=== PATIENT | female | born 1935 | race Caucasian/White ===

== ENCOUNTER → 2018-01-21 | Outpatient (CLI) | payer MEDICARE, BC ==
[~2018-01-21] MED LIST: ADVAIR 250-501 EACH INH; ADVAIR 500-501 EACH INH; ADVAIRDISKUS; ALBUTEROL SULFAT2 MG PO; ALBUTEROL SULFATE PO; ALBUTEROL2.5 MG/3 M PO; ALPRAZOLAM 0.50.5 MG PO; AMBIEN 5 MG TABL5 M1 PO; ANTACID650 MG PO; ASPIR 8181 MG PO; ATORVASTATIN CA40 MG PO; AZITHROMYCIN 2250 MG PO; BROVANA15 MCG/2 M INH; CALCIUM 500 +1 EAC5 PO; CALCIUM 600 +1 EAC7 PO; CARDIZEM CD240 MG; CEFPODOXIME PR200 M1 PO; CEFTIN 250 MG250 MG PO; CENTRUM SILVER1 EAC4 PO; CLARITIN-D 12 H1 TA2 PO; CLARITIN10 MG PO; CO-ENZYME Q-1010 MG PO; COLACE100 MG PO; COUMADIN; COZAAR 25 MG TA25 M2 PO; COZAAR 50 MG TA50 M2 PO; DIPHENHYDRAMINE25 M1 PO; DOXYCYCLINE 10100 M1; DOXYCYCLINE 10100 M1 PO; DOXYCYCLINE 10100 MG PO; DUONEB 2.5-0.5 M3 ML; ENABLEX 7.5 MG7.5 M1 PO; EVISTA PO; FELDENE20 MG PO; FLONASE 0.05%50 MCG NASAL; Feldene PO; GABAPENTIN 100100 MG; GABAPENTIN100 MG; GABAPENTIN100 MG PO; HYDROCHLOROTH12.5 MG; HYDROXYZINE HCL25 M1 PO; HYDROXYZINE HCL25 M2 PO; IBUPROFEN 200200 M1 PO; KEFLEX; KEFLEX250 MG PO; KEFLEX500 MG PO; KLOR-CON 1010 MEQ PO; LASIX 20 MG TAB20 MG PO; LASIX 40 MG TAB40 M2 PO; LASIX 80 MG TAB80 MG PO; LEVOTHYROXINE0.05 MG PO; LOPRESSOR25 PO; MAGNESIUM OXID400 MG PO; METAMUCIL PAC1 UDPKT PO; MIRALAX17 GM PO; MUCINEX TA600 MG/TA2 PO; MUCINEX600 MG; MUCINEX600 MG PO; NEURONTIN 300300 M1 PO; NEURONTIN 300M300 M2 PO; NIACIN 500 MG500 M1 PO; NORVASC10 MG PO; ONDANSETRON HCL4 M2 PO; OXYCODONE HCL15 MG PO; OXYCONTIN CR 1010 M1; PERCOCET 10-321 EACH PO; PERCOCET 5-3251 EACH; PERCOCET 5-3251 EACH PO; PILOCARPINE HCL5 M1 PO; PLAVIX 75 MG TA75 M1 PO; POTASSIUM20 PO; PREDNISONE 10 M10 M1 PO; PREDNISONE 10 M10 MG PO; PREDNISONE 2.52.5 MG PO; PREDNISONE 20 M20 MG PO; PREDNISONE 5 MG5 M1 PO; PREDNISONE10 MG PO; PROAIR HFA8.5 GM; PROAIR HFA8.5 GM INH; PROTONIX40 M1 PO; PROTONIX40 M2 PO; PROVENTIL; PULMICORT0.5 MG/22 INH; REQUIP 1 MG TABL1 M1 PO; ROBITUSSIN DM118 ML PO; SF 5000 PLUS51 GM PO; SIMVASTATIN40 MG; SINGULAIR; SINGULAIR 10 MG10 M1 PO; SPIRIVA18 MCG INH; SYMBICORT80 MCG/4.1 INH; SYNTHROID; TAMSULOSIN HCL0.4 MG; TESSALON PERLE100 MG PO; TIZANIDINE HCL 22 M1 PO; TOPROL XL100 MG PO; TOPROL XL25 MG PO; TRIAMCINOLONE A80 G2 TOP; ULTRAM 50MG TAB50 MG; UNICOMPLEX M TA1 TA1 PO; VENTOLIN HFA 1818 GM INH; VENTOLIN HFA INH8 GM IH; XANAX 0.25 MG0.25 MG PO; XANAX 0.5 MG0.5 MG PO; ZANAFLEX4 MG PO; ZETIA10 MG PO; ZOFRAN ODT4 MG PO; ZOFRAN ODT8 MG PO; ZYRTEC10 M2 PO; ZYRTEC10 M5 PO
[2018-01-21 11:23] LABS: ABSOLUTE EOSINOPHILS 0.1 thou/uL (0.0-0.7); ABSOLUTE LYMPHOCYTES 1.5 thou/uL (0.8-5.3); ABSOLUTE MONOCYTES 0.9 thou/uL (0.0-1.2); ABSOLUTE NEUTROPHILS 6.3 thou/uL (1.6-8.1); BASOPHILS 0.5 %; EOSINOPHILS 0.9 %; HEMATOCRIT 41.1 % (37.0-47.0); MCH 33.5 pg (26.0-34.0); MCHC 34.1 g/dL (28.0-37.0); MONOCYTES 10.4 %; MPV 6.9 fl. (7.2-11.1); NUCLEATED RBCS 0 /100WBC; PLATELET COUNT* 221 thou/uL (150-400); POLYS 71.2 %; RBC 4.19 mil/uL (4.20-5.00); RDW-CV 14.4 % (10.5-14.5); WBC 8.8 thou/uL (4.0-11.0)
[2018-01-21 11:24] LABS: URINE BILIRUBIN NEGATIVE (Negative); URINE BLOOD NEGATIVE (Negative); URINE CLARITY CLEAR; URINE COLOR YELLOW; URINE GLUCOSE-RANDOM NEGATIVE (Negative); URINE KETONES NEGATIVE (Negative); URINE LEUKOCYTES-REFLEX TRACE (Negative); URINE NITRITE-REFLEX NEGATIVE (Negative); URINE PROTEIN NEGATIVE (Negative); URINE SPECIFIC GRAVITY 1.015 (1.005-1.030); URINE UROBILINOGEN 0.2 E.U./dl (0.2-1.0)
[2018-01-21 11:31] LABS: CALCIUM 9.2 mg/dL (8.5-10.1); DIRECT BILIRUBIN 0.2 mg/dL (<0.1-0.3); POTASSIUM 4.5 mmol/L (3.5-5.1)
[2018-01-21 11:40] LABS: SQUAMOUS 4-10 Moderate /LPF (0-3); URINE WBC-REFLEX 0-5 Rare /HPF (0-5)
[2018-01-21 11:41] LABS: BACTERIA-REFLEX 1-9 Few /HPF (None Seen); CRYSTALS None Seen /LPF (None Seen); HYALINE CASTS 4-10 Moderate /LPF (None Seen); MUCUS 0-3 Light strn/LPF (None Seen); URINE RBC 0-2 Rare /HPF (0-2)
[2018-01-22 02:07] LABS: GLYCOHEMOGLOBIN (HGB A1C) 4.4 % (4.8-5.6)
== END ==
LOC: M.LAB 10:38
PROVIDERS: Family Medicine
DX: E87.1 Hypo-osmolality and hyponatremia (principal); D72.829 Elevated white blood cell count, unspecified; R30.0 Dysuria; R73.01 Impaired fasting glucose; R17 Unspecified jaundice

== ENCOUNTER → 2018-06-06 | Outpatient (CLI) | payer MEDICARE, BC ==
[2018-06-06 08:57] LABS: CHOLESTEROL 179 mg/dL (<200); HDL CHOLESTEROL 71 mg/dL (>40); LDL CHOLESTEROL 88 mg/dL (<100); SODIUM 127 mmol/L (136-145); TC:HDL 2.5 Ratio (Not establshd); TRIGLYCERIDE 103 mg/dL (<150); VLDL 21 mg/dL (<40)
[2018-06-06 08:58] LABS: SERUM ASSESSMENT Clear
== END ==
LOC: M.LAB 08:06
PROVIDERS: Internal Medicine Cardiovascular Disease
DX: E78.2 Mixed hyperlipidemia (principal); E87.1 Hypo-osmolality and hyponatremia

== ENCOUNTER → 2018-07-08 | Outpatient (CLI) | payer MEDICARE, BC ==
[2018-07-08 09:12] LABS: ABSOLUTE EOSINOPHILS 0.1 thou/uL (0.0-0.7); ABSOLUTE LYMPHOCYTES 0.7 thou/uL (0.8-5.3); ABSOLUTE MONOCYTES 0.4 thou/uL (0.0-1.2); ABSOLUTE NEUTROPHILS 3.5 thou/uL (1.6-8.1); BASOPHILS 0.7 %; EOSINOPHILS 1.2 %; HEMATOCRIT 42.2 % (37.0-47.0); LYMPHOCYTES 14.5 %; MCH 33.1 pg (26.0-34.0); MCHC 33.3 g/dL (28.0-37.0); MCV 99.6 fL (80.0-100.0); MONOCYTES 7.8 %; MPV 7.1 fl. (7.2-11.1); NUCLEATED RBCS 0 /100WBC; PLATELET COUNT* 173 thou/uL (150-400); POLYS 75.8 %; RBC 4.24 mil/uL (4.20-5.00); RDW-CV 13.1 % (10.5-14.5); WBC 4.6 thou/uL (4.0-11.0)
[2018-07-08 09:15] LABS: URINE BILIRUBIN NEGATIVE (Negative); URINE BLOOD NEGATIVE (Negative); URINE CLARITY CLEAR; URINE COLOR STRAW; URINE GLUCOSE-RANDOM NEGATIVE (Negative); URINE KETONES TRACE (Negative); URINE LEUKOCYTES-REFLEX NEGATIVE (Negative); URINE NITRITE-REFLEX NEGATIVE (Negative); URINE PROTEIN NEGATIVE (Negative)
[2018-07-08 09:23] LABS: ALBUMIN 3.8 g/dL (3.4-5.0); ALKALINE PHOSPHATASE 101 U/L (46-116); ANION GAP 7 mmol/L (7-16); BUN 12 mg/dL (7-18); CALCIUM 8.9 mg/dL (8.5-10.1); CHLORIDE 95 mmol/L (98-107); CHOLESTEROL 182 mg/dL (<200); CO2 28 mmol/L (21-32); CREATININE 0.9 mg/dL (0.6-1.3); GLUCOSE 95 mg/dL (70-99); HDL CHOLESTEROL 78 mg/dL (>40); LDL CHOLESTEROL 82 mg/dL (<100); POTASSIUM 4.1 mmol/L (3.5-5.1); SGOT 23 U/L (15-37); SGPT 25 U/L (30-65); SODIUM 130 mmol/L (136-145); TC:HDL 2.3 Ratio (Not establshd); TOTAL BILIRUBIN 1.2 mg/dL (<0.1-1.0); TOTAL PROTEIN 7.2 g/dL (6.4-8.2); TRIGLYCERIDE 110 mg/dL (<150); VLDL 22 mg/dL (<40)
[2018-07-08 09:24] LABS: SERUM ASSESSMENT Clear
== END ==
LOC: M.LAB 08:43
PROVIDERS: Family Medicine
DX: E87.1 Hypo-osmolality and hyponatremia (principal); D72.829 Elevated white blood cell count, unspecified; D64.9 Anemia, unspecified; I11.0 Hypertensive heart disease with heart failure; I50.9 Heart failure, unspecified; E78.5 Hyperlipidemia, unspecified; J44.9 Chronic obstructive pulmonary disease, unspecified; E03.9 Hypothyroidism, unspecified; M81.0 Age-related osteoporosis without current pathological fracture; R73.01 Impaired fasting glucose; Z85.3 Personal history of malignant neoplasm of breast

== ENCOUNTER 2019-01-15 10:52 | Inpatient (IN) | payer MEDICARE, BC ==
[~2019-01-15] VITALS: Ht 167.6 cm; Wt 57.6 kg
--- NOTE | ~2019-01-15 | EEG ---
[address] [address] EEG STUDY REPORT Name: JOHANNY CURRY Room: [address] IN ..#: [id number] Admission: 01/15/19 Attend Phys: Dony Lacey Discharge: Date of : 34 Report #: [id number] THIS REPORT FOR: //name// CC: Iraida Myers DATE OF SERVICE: 01/16/2019 This patient is being evaluated for altered mental status. EEG was done by placing the electrode by standard 10-20 system of electrode placement. Both referential and sequential montages were used for recording. Background activity in this patient's EEG is about 9 Hz and 30 microvolt. This EEG is intermixed with some theta range slowing. The patient becomes drowsy that is associated with bilateral slowing and vertex sharp waves. Photic stimulation is unremarkable. Throughout the record, no active epileptiform activity was noticed. IMPRESSION: The patient's EEG is intermixed with some theta range slowing on both sides. That is a nonspecific abnormality, which can occur with encephalopathy, effect of psychotropic medication, dementia, etc. Clinical correlation is recommended. By: [id number] 1957Teja Guidry MD /abby
--- NOTE | ~2019-01-15 | CON ---
[address] [address] CONSULTATION Name: JOHANNY CURRY Room: [address] IN .R.#: [id number] Admission: 01/15/19 Attend Phys: Dony Lacey Discharge: Date of : 34 Report #: [id number] THIS REPORT FOR: //name// CC: Iraida Myers DATE OF SERVICE: 01/16/2019 HISTORY OF PRESENT ILLNESS: This is an 83-year-old female patient who was evaluated by me for any neurological etiology for the patient's episode. The patient sleeps in a different room than the does. came down and found the patient on the floor. There was no injury. There was no bleeding and she does not remember anything about that. No tonic-clonic activity was noticed. It looks like this patient had an episode 2 years ago. She was evaluated at [facility] and probably had an MRI done. I do not have that workup. Workup was unremarkable. The patient had extensive metal in her body. She has metal in her shoulder as well as joints of the lower extremity. REVIEW OF SYSTEMS: Indicate that this patient does not remember the episode. She has a history of renal failure, CHF, bilateral pneumonia, cervical spine fracture, COPD, GI bleed, hip fracture, shoulder replacement, hip replacement, right knee replacement, congestive heart failure. This was her relevant 14-point review of system. She feels back to her baseline now. PAST MEDICAL HISTORY: Positive for falls, but I do not have any records. FAMILY HISTORY: Negative for any early age stroke. SOCIAL HISTORY: She has a history of alcohol intake, but does not smoke now. PHYSICAL EXAMINATION: NEUROLOGIC: Indicates she is alert, responsive, able to follow simple and complex commands. She believes her memory, fund of knowledge and speech is at baseline. Cranial nerve examination 2-12 was unremarkable. She moves all 4 extremities. The motion is restricted in the left shoulder because of surgery there. Reflexes are somewhat diminished on both sides. Position sense appeared to be intact, but she takes a long time to respond. Tone looks symmetrical. I could not look at the patient's fundus. She has apparently macular degeneration and visual deficits there, but according to her that is her baseline. EXTREMITIES: The pulses are difficult to feel, but there is no edema, cyanosis or jaundice. HEENT: Vision and hearing is adequate. NECK: No thyroid masses present. RESPIRATORY: She does have some scattered rhonchi on both sides. CARDIAC: Appears unremarkable. VITAL SIGNS: Blood pressure is 154/129, [place] 78[place] [address] CONSULTATION Name: JOHANNY CURRY Room: [address] IN [facility].#: [id number] Admission: 01/15/19 Attend Phys: Dony Lacey Discharge: Date of : 34 Report #: [id number] LABORATORY DATA: Indicates a white count of 13.8. UA indicates UTI. IMPRESSION: This patient appeared to have urinary tract infection. She may have had some encephalopathy. Symptoms are so unstructured it is difficult to tell for sure. RECOMMENDATIONS: 1. I will try to get the records from [facility]. 2. If they did an MRI and it did not cause any adverse effects, then we will like to repeat the MRI. Otherwise, we can just watch her and see how she does. I will get an EEG done to evaluate the patient for any metabolic encephalopathy. Thank you very much for this referral and if you have any question, please feel free to contact me. By: 1203 [id number] Guidry MD /nt
[~2019-01-15 10:52] MED LIST changes: +METOPROLOL SUCC50 MG PO
[2019-01-15 10:56] VITALS: BP 169/79
[2019-01-15 11:24] LABS: BE 0.5 mmol/L (-2 to +3); PCO2 36.1 mmHg (35.0-45.0); PO2 61.4 mmHg (75.0-100.0); pH 7.443 (7.340-7.450)
[2019-01-15 12:08] LABS: CALCIUM 9.7 mg/dL (8.5-10.1); CREATININE 0.7 mg/dL (0.6-1.3); POTASSIUM 5.6 mmol/L (3.5-5.1)
[2019-01-15 12:12] LABS: MAGNESIUM 1.8 mg/dL (1.8-2.4); TOTAL BILIRUBIN 1.6 mg/dL (<0.1-1.0); TOTAL PROTEIN 8.4 g/dL (6.4-8.2)
--- NOTE | 2019-01-15 12:34 | NUR ---
PT BACK FROM RADIOLOGY VIA STRETCHER BY [employer].
--- NOTE | 2019-01-15 12:50 | NUR ---
C-COLLAR TAKEN OFF BY DR. DAMON
--- NOTE | 2019-01-15 13:00 | NUR ---
PT SOILED SELF AND LINENS. PT CLEANSED WITH WET WIPES AND LINENS CHANGED WITH ASSISTANCE OF PACO PUENTE. PT REPOSITIONED HIGHER IN BED. DAMON CATHETER PLACED AND UA SPECIMEN SENT TO LAB.
--- NOTE | 2019-01-15 13:16 | NUR ---
KWAME RN AT BEDSIDE. INSERTED IV AND WAS ABLE TO DRAW BLOOD WORK, BUT NOT ALL OF IT. FURNACE CHARGING MACHINE OPERATOR AT BEDSIDE ATTEMPTING TO DRAW REST OF BLOOD WORK. PT NOW OPENING EYES SPONTANEOUSLY AND TALKING, IN GARBLED WORDS, TO STAFF MEMBERS AND FAMILY AT BEDSIDE.
[2019-01-15 13:23] LABS: URINE BILIRUBIN NEGATIVE (Negative); URINE BLOOD 1+ (Negative); URINE CLARITY CLEAR; URINE COLOR YELLOW; URINE GLUCOSE-RANDOM NEGATIVE (Negative); URINE KETONES NEGATIVE (Negative); URINE NITRITE-REFLEX NEGATIVE (Negative); URINE PROTEIN 1+ (Negative); URINE UROBILINOGEN 0.2 E.U./dl (0.2-1.0)
[2019-01-15 13:26] LABS: URINE LEUKOCYTES-REFLEX 2+ (Negative)
[2019-01-15 13:49] LABS: HEMATOCRIT 40.9 % (37.0-47.0); HEMOGLOBIN 13.9 gm/dL (12.0-15.0); MCH 33.2 pg (26.0-34.0); MCV 97.6 fL (80.0-100.0); MPV 7.7 fl. (7.2-11.1); NUCLEATED RBCS 0 /100WBC; PLATELET COUNT* 173 thou/uL (150-400); RBC 4.19 mil/uL (4.20-5.00); RDW-CV 13.5 % (10.5-14.5); WBC 13.8 thou/uL (4.0-11.0)
--- NOTE | 2019-01-15 13:52 | NUR ---
REPORT GIVEN TO PACO CHOUDHURY WHO TOOK REPORT FOR PACO SRINIVASAN. PACO SRINIVASAN TO ASSUME PT CARE INPATIENT NURSE.
[2019-01-15 13:53] VITALS: BP 187/74
[2019-01-15 14:07] LABS: TROPONIN-I LEVEL 0.14 ng/mL (<0.06)
[2019-01-15 14:15] LABS: APTT 27.5 Seconds (25.0-31.3); PROTIME 10.3 Seconds (9.20-11.50)
[2019-01-15 14:24] LABS: CASTS None Seen /LPF (None Seen); SQUAMOUS 0-3 Few /LPF (0-3)
[2019-01-15 14:25] LABS: BACTERIA-REFLEX >30 Many /HPF (None Seen); CRYSTALS None Seen /LPF (None Seen); URINE RBC 3-10 Few /HPF (0-2); URINE WBC-REFLEX >25 Many /HPF (0-5); WBC CLUMPS Moderate (None Seen)
[2019-01-15 14:31] LABS: ABSOLUTE LYMPHOCYTES 1.1 thou/uL (0.8-5.3); ABSOLUTE MONOCYTES 0.8 thou/uL (0.0-1.2); ABSOLUTE NEUTROPHILS 11.9 thou/uL (1.6-8.1)
[2019-01-15 14:32] LABS: LARGE PLATELETS OCCASIONAL; PLATELET ESTIMATE ADEQUATE
[2019-01-15 15:40] LABS: AMP/METHAMP Negative (Negative); BARBITURATES Negative (Negative); BENZODIAZEPINES POSITIVE (Negative); COCAINE Negative (Negative); METHADONE Negative (Negative); OPIATES Negative (Negative); PCP Negative (Negative); THC Negative (Negative)
[2019-01-15 16:06] LABS: CALCIUM 10.7 mg/dL (8.5-10.1); CREATININE 0.8 mg/dL (0.6-1.3)
[2019-01-15 16:07] LABS: POTASSIUM 3.9 mmol/L (3.5-5.1)
--- NOTE | 2019-01-15 17:32 | NUR ---
PT ADMITTED AROUND 1500 PT IS NOT AWAKE OR ALERT PT RESPONDS TO PAIN PT IS ASLEEP PT BLOOD PRESSURE IS ELEVATED PT FAMILY NOTIFIED THIS NURSE THAT PT FELL NOT SURE OF TIME FOUND PT THIS AM XANAX BOTTLE FOUND WITH PT PT IS A FALL RISK BED ALARM IS ON PT DAUGHTER BROUGHT UP MED LIS NOT CURRENT SHOWED THIS NURSE TWO BOTTLES OF PERCOCET AND OXYCODONE OT LEFT ARM IS PURPLE PAGED PHYSICIAN REGARDING LEFT ARM HIGH BLOOD PRESSURE NEED FOR PICC LINE ELEVATED TROP, DRUG SCREEN CAME BACK POSITIVE FOR BENZODIAZEPIAM OBTAINED ORDERS FOR MEDICATION TO LOWER BLOOD PRESSURE VENOUS DOPPLER LEFT ARM ABGS VIV VILLASENOR CONSULTED WITH PHYSICIAN REGARDING POSSIBLE ICU TRANSFER PHYSICIAN STATED AT THIS TIME PT NOT A CANIDATE FOR ICU PLAED JUAN LARA ON PT TO WARM PT UP AWAITING PICC LINE PLACEMENT TO GIVE MEDS, PT SR ON THE MONITOR, WILL CONTINUE TO MONITOR
[2019-01-15] MEDS ORDERED: OXYCONTIN20 M1 PO (18:55)
[2019-01-15 20:20] VITALS: BP 144/62
[2019-01-16] VITALS (10 sets, daily range): BP systolic 145–193; BP diastolic 42–129
[2019-01-16 05:30] LABS: CHOLESTEROL 132 mg/dL (<200); HDL CHOLESTEROL 53 mg/dL (>40); LDL CHOLESTEROL 61 mg/dL (<100); TC:HDL 2.5 Ratio (Not establshd); TRIGLYCERIDE 92 mg/dL (<150); VLDL 18 mg/dL (<40)
[2019-01-16 05:31] LABS: SERUM ASSESSMENT Clear
--- NOTE | 2019-01-16 07:47 | NUR ---
PT CARE ASSUMED AT 1930. SAT MAINTAINED IN [place]. PT IA ALERT AND AWAKE. CALL LIGHT WITHIN REACH AND BED IN LOW POSITION. DENIES PAIN AND SOB. HOURLY ROUNDING DONE FOR PT SAFETY.
--- NOTE | 2019-01-16 09:07 | NUR ---
ASSUMED CARE OF PT THIS AM AROUND 07- FURNACE UNLOADER IN PLACE ORDERED, TRACING SR- UPON ASSESSMENT PT NOTED TO BE RESTING IN BED, EYES CLOSED-T ARROUSABLE, A&O X3 WITH FORGETFULLNESS- DAMON IN PLACE D/D CLEAR MAYDA URINE , CONTINENT OF BOWEL- BED REST IN PLACE WITH Q 2 HOUR TURNS- COURSE LUNG SOUNDS NOTED, RESP EVEN AND UN-LABORED- WET COUGH NOTED, FAIR COUGH EFFORT- VSS, O2 SAT 100% ON 4L VIA NC- ABD SOFT/FLAT/NON-TENDER, BS X 4 QUADS- LAST BM REPORTED ON PRIOR SHIFT- RIGHT JUGULAR DOUBLE LUMEN PICC NOTED INTACT, IVF INFUSSING PRESCIBED- IV ABT GIVEN THIS AM PRESCIBED, NO ADVERSE REACTIONS TO NOTE- MEDS WITH SIPS OF WATER THIS AM GIVEN, PT DID WELL WITH NO ISSUES NOTED, BED SIDE SWALLOW PASSED- PT DENIES ANY C/O PAIN- CALL LIGHT AND PERSONAL BELONGINGS WITH IN REACH- BED ALARM IN PLACE AND WORKING R/T SAFETY-HOURLY ROUNDS IN PLACE R/T SAFETY/NEEDS- ALL NEEDS MET AT THIS TIME-THAI
--- NOTE | 2019-01-16 10:25 | EKG ---
[place] [address] ELECTROCARDIOGRAM REPORT Name: JOHANNY CURRY Room: [address] ADM IN .R.#: [id number] Admission: 01/15/19 Attend Phys: Dony Lacey Discharge: Date of : 34 Report #: [id number] THIS REPORT FOR: //name// [facility] ED Test Date: 2019-01-15 Test Time: 10:57:53 Pat Name: JOHANNY CURRY Department: Room: [facility] Gender: F Home Builder: [place] : 1935 Requested By: Debra Alarcon Order Number: [id number] MD: Nigel De Anda Measurements Intervals [place] Rate: 78 P: 63 OK: 187 QRS: -14 QRSD: 90 T: 47 QT: 411 QTc: 469 Interpretive Statements Sinus rhythm Inferior infarct, old Anterior infarct, old Compared to ECG 05/19/2017 19:15:33 First degree AV block no longer present Myocardial infarct finding still present Electronically Signed On 01-16-2019 10:25:17 CDT by Nigel De Anda [email or web address] <ELECTRONICALLY SIGNED> By: Nigel De Anda MD, [facility] 01/16/19 1025 1057 1057 Nigel De Anda MD, [facility] /EPI
--- NOTE | 2019-01-16 11:00 | NUR ---
PT ADMITTED YESTERDAY AFTER BEING FOUND ON THE FLOOR AT HOME BY HER . PT DOESN'T REMEMBER WHAT HAPPENED, FAMILY WONDERS IF SHE EITHER FELL OUT OF BED OR GOT UP IN THE NIGHT AND FELL AND THEN COULDN'T GET BACK UP. PT LIVES WITH HER . SHE HAS HOME O2 FROM [facility], [place]. SHE HAS A CANE AND WALKER. SHE WALKS SHORT DISTANCES IN THE HOUSE ONLY. SHE HAS A CAREGIVER THRU [facility] THAT COMES 3 DAYS A WEEK FOR 3 HOURS. HARP REPAIRER DOES THE COOKING, CLEANING, HELPS HER WITH A SHOWER. FAMILY IS ALREADY DISCUSSING INCREASING THE HOURS THAT THE CAREGIVER IS IN THE HOME. PATIENT KEEPS HER MEDICATIONS WITH HER, SHE WRITES DOWN IN A LOG EVERY TIME SHE TAKES A PAIN PILL. POSSIBILITY THAT PT TOOK TOO MANY PAIN PILLS OR ANXIETY MEDS? DISCUSSED WITH FAMILY MAY NEED TO LOOK AT OTHER OPTIONS FOR MEDICATION MANAGEMENT. FAMILY PLANS FOR PT TO RETURN HOME WITH CONTINUED CAREGIVERS. [facility]. DISCUSSED ROLE OF CASE MGT, WILL CONTINUE TO FOLLOW.
[2019-01-16 12:54] LABS: ABSOLUTE BASOPHILS 0.1 thou/uL (0.0-0.2); ABSOLUTE LYMPHOCYTES 0.6 thou/uL (0.8-5.3); ABSOLUTE MONOCYTES 0.9 thou/uL (0.0-1.2); ABSOLUTE NEUTROPHILS 13.5 thou/uL (1.6-8.1); BASOPHILS 0.4 %; HEMATOCRIT 42.4 % (37.0-47.0); HEMOGLOBIN 14.3 gm/dL (12.0-15.0); LYMPHOCYTES 4.3 %; MCH 33.5 pg (26.0-34.0); MCHC 33.6 g/dL (28.0-37.0); MCV 99.5 fL (80.0-100.0); MONOCYTES 6.1 %; MPV 8.3 fl. (7.2-11.1); NUCLEATED RBCS 0 /100WBC; PLATELET COUNT* 176 thou/uL (150-400); POLYS 89.2 %; RBC 4.27 mil/uL (4.20-5.00); RDW-CV 13.6 % (10.5-14.5); WBC 15.2 thou/uL (4.0-11.0)
--- NOTE | 2019-01-16 16:09 | NUR ---
PT CURRENTLY RESTING IN BED, WATCHING TV- COPPER PLATE LITHOGRAPHER CONTINUED, TRACING SR- IV TO RIGHT JUGULAR INTACT, IVF INFSSING PRESCIBED- CLEAR LIQUID DIET STARTED FOR LUNCH WITH OKAY TO ADVANCE TOLERATED PER THIS SHIFT- PLAVIX AND LASIX D/C'D PER CARDIOLOGY AND LOVENOX SWITCHED TO 40 MG Q HS THIS SHIFT- EEG COMPLETED THIS SHIFT PER NEUROLOGY ORDERED, AWAITING RESULTS- TROPS ORDERED FOR IN AM- PT UP TO BED SIDE CHAIR WITH PT THIS SHIFT, TOLERATING WELL- CTA NEGATIVE FOR PE- PRN TYLENOL X1 THIS SHIFT AT 1352 R/T C/O BACK PAIN- PT REPORTS MEDICATION IN CONJUNCTION WITH REST TO BE EFFECTIVE- CALL LIGHT AND PERSONAL BELONGINGS WITH IN REACH- PT MAKES NEEDS KNOWN- ALL NEEDS MET AT THIS TIME-WCTM
[2019-01-17] VITALS (11 sets, daily range): BP systolic 135–199; BP diastolic 56–133
[2019-01-17 05:25] LABS: ABSOLUTE LYMPHOCYTES 0.9 thou/uL (0.8-5.3); ABSOLUTE MONOCYTES 0.8 thou/uL (0.0-1.2); ABSOLUTE NEUTROPHILS 8.4 thou/uL (1.6-8.1); BASOPHILS 0.3 %; EOSINOPHILS 0.1 %; HEMOGLOBIN 12.7 gm/dL (12.0-15.0); LYMPHOCYTES 8.6 %; MCH 32.8 pg (26.0-34.0); MCHC 33.5 g/dL (28.0-37.0); MCV 97.8 fL (80.0-100.0); MONOCYTES 8.3 %; MPV 8.2 fl. (7.2-11.1); NUCLEATED RBCS 0 /100WBC; PLATELET COUNT* 162 thou/uL (150-400); POLYS 82.7 %; RBC 3.88 mil/uL (4.20-5.00); RDW-CV 13.5 % (10.5-14.5); WBC 10.2 thou/uL (4.0-11.0)
[2019-01-17 06:29] LABS: CREATININE 0.6 mg/dL (0.6-1.3); TROPONIN-I LEVEL 0.4 ng/mL (<0.06)
[2019-01-17 06:30] LABS: CALCIUM 8.1 mg/dL (8.5-10.1)
[2019-01-17 06:31] LABS: POTASSIUM 2.8 mmol/L (3.5-5.1)
--- NOTE | 2019-01-17 06:49 | NUR ---
ASSUMED CARE OF PT AFTER REPORT AT 1930. PT A&OX4. FORGETFUL. VSS. PHYSICAL ASSESSMENT COMPLETED AND CHARTED. PT ON O2 AT 3L. PT TRACING SR ON TELE. PT REPORTED UP WITH 1 ASSIST BUT REMAINS ON BED ALL NIGHT. PT COMPLAINED OF BACK PAIN- PAIN MEDS GIVEN PER NOV. [facility] CHARTED. PT HAS CRITICAL POTASSIUM OF 2.87 THIS AM- ELECTROLYTE PROTOCOL IN PLACE. FLU SWAB SENT TO LAB. CALL LIGHT WITHIN REACH.
[2019-01-17 07:12] LABS: INFLUENZA A ANTIGEN None Detected (None Detect); INFLUENZA B ANTIGEN None Detected (None Detect)
--- NOTE | 2019-01-17 10:10 | 2DMMODE ---
[place] [address] 2 D/M-MODE ECHOCARDIOGRAM Name: JOHANNY CURRY Room: [address] IN [facility]#: [id number] Admission: 01/15/19 Attend Phys: Nicho Myers Discharge: Date of : 34 Date of Service: 01/16/19 1332 Report #: [id number] THIS REPORT FOR: //name// APPROVED REPORT Study performed: 01/16/2019 09:53:21 EXAM: Comprehensive 2D, Doppler, and color-flow Echocardiogram Patient Location: In-Patient Room #: 204 BSA: 1.68 HR: 78 bpm BP: 154/129 mmHg Other Information Study Quality: Good Indications AMS 2D Dimensions IVSd: 10.11 (7-11mm) LVOT Diam: 17.57 (18-24mm) LVDd: 46.52 mm PWd: 9.22 (7-11mm) Ascending Ao: 32.87 (22-36mm) LVDs: 27.82 (25-40mm) Aortic Root: 27.29 mm Aortic Valve AoV Peak Andrei.: 1.08 m/s AO Peak Gr.: 4.63 mmHg LVOT Max P.52 mmHg AO Mean Gr.: 2.56 mmHg LVOT Mean P.31 mmHg LVOT Max V: 0.79 m/s AO V2 VTI: 21.11 cm LVOT Mean V: 0.54 m/s ASHIA (VTI): 2.10 cm2 LVOT V1 VTI: 18.29 cm Mitral Valve E/A Ratio: 0.52 MV Decel. Time: 184.40 ms MV E Max Andrei.: 0.63 m/s MV PHT: 53.48 ms MVA (PHT): 4.11 cm2 TDI E/Lateral E': 12.60 E/Medial E': 15.75 [place] [address] 2 D/M-MODE ECHOCARDIOGRAM Name: JOHANNY CURRY Room: [address] IN [facility]#: [id number] Admission: 01/15/19 Attend Phys: Nicho Myers Discharge: Date of : 33 Date of Service: 01/16/19 1332 Report #: [id number] Medial E' Andrei.: 0.04 m/s Lateral E' Andrei.: 0.05 m/s Pulmonary Valve PV Peak Andrei.: 1.07 m/s PV Peak Gr.: 4.57 mmHg Tricuspid Valve RAP Estimate: 5.00 mmHg TR Peak Gr.: 41.65 mmHg RVSP: 46.65 mmHg PA Pressure: 46.65 mmHg Left Ventricle The left ventricle is normal size. There is normal LV segmental wall motion. There is normal left ventricular wall thickness. Left ventricular systolic function is normal. The left ventricular ejection fraction is within the normal range. LVEF is 55-60%. The left ventricular diastolic function is normal. Right Ventricle The right ventricle is normal size. The right ventricular systolic function is normal. Atria The left atrium size is normal. The right atrium size is normal. Aortic Valve The aortic valve is normal in structure. No aortic regurgitation is present. There is no aortic valvular stenosis. Mitral Valve Mild mitral annular calcification. There is no mitral valve regurgitation noted. No evidence of mitral valve stenosis. Tricuspid Valve The tricuspid valve is normal in structure. Mild to moderate tricuspid regurgitation. estimated pa pressure 35 mm Hg Pulmonic Valve The pulmonary valve is normal in structure. There is no pulmonic valvular regurgitation. Great Vessels The aortic root is normal in size. IVC is normal in size and collapses >50% [place] [address] 2 D/M-MODE ECHOCARDIOGRAM Name: JOHANNY CURRY Room: [address]#: [id number] Admission: 01/15/19 Attend Phys: Nicho Myers Discharge: Date of : 33 Date of Service: 01/16/19 1332 Report #: [id number] Pericardium There is no pericardial effusion. <Conclusion> Left ventricular systolic function is normal. The left ventricular ejection fraction is within the normal range. <ELECTRONICALLY SIGNED> By: Nigel De Anda MD, [facility] 01/16/19 1332 133 133 Nigel De Anda MD, FAC /INF
--- NOTE | 2019-01-17 10:15 | NUR ---
INITAL ASSESSMENT COMPLETED CHARTED. PT C/O CHRONIC BACK PAIN. PRN TYLENOL GIVEN WITH PARTIAL RELIEF. VSS. TRACING SR ON MONITOR. DAMON IN PLACE TO DD. PT DENIES ANY FURTHER NEEDS AT THIS TIME. HOURLY ROUNDING AND FALL PRECAUTIONS IN PLACE FOR SAFETY. CLWR.
--- NOTE | 2019-01-17 15:43 | CON ---
[address] [address] CONSULTATION Name: JOHANNY CURRY Room: [address] IN .R.#: [id number] Admission: 01/15/19 Attend Phys: Dony Lacey Discharge: Date of : 34 Report #: [id number] THIS REPORT FOR: //name// CC: Iraida Myers DATE OF SERVICE: 01/16/2019 CARDIOLOGY CONSULTATION HISTORY OF PRESENT ILLNESS: The patient is an 83-year-old white female who I was asked to see in the hospital today after she fell out of bed. The history is obtained from the patient as well as her daughter who is present. The patient has been cared for by my partner, Dr. Montana Gill. She apparently had a cardiac catheterization back in 2014 that showed only 60% narrowing of the mid LAD and a 60% narrowing of the right coronary artery. No ventriculogram was performed. I performed this from the right radial artery. She has been followed by my partner, Dr. Dinh who retired, so she last saw Dr. Gill in July. She had an echocardiogram in 2015 that showed ejection fraction 60% with aortic sclerosis. The patient was admitted here to [facility] in 2015 with chronic diastolic heart failure and renal insufficiency. She is not very active and uses a walker. She denied any recent vomiting, fever, diarrhea or bleeding. According to the , they do not sleep in the same room. The went to check on her and she was found by the side of the bed, apparently had fallen out of bed. The patient was brought to [facility] by ambulance yesterday morning and has been confused. The patient denied any palpitations or chest pain. She does have COPD and has chronic dyspnea on exertion. She had a cough recently. PAST MEDICAL HISTORY: She has had previous colostomy for diverticular disease that was later reversed. She has had hip surgery, knee surgery. She had a mastectomy for cancer treated with radiation therapy and chemotherapy. She has a history of hypertension. MEDICATIONS: Include albuterol inhaler, Xanax, aspirin, Zetia, Lasix, Neurontin, Synthroid, losartan, metoprolol, Singulair, Zofran, oxycodone, Protonix. ALLERGIES: SHE HAS INTOLERANCE TO CLARITHROMYCIN, CODEINE, LOPID. FAMILY HISTORY: Heart disease runs in the family. SOCIAL HISTORY: She is . Her is actually a patient of mine. They live here in [place]. She does have home health nurse check on her. She quit smoking years ago, [place] [address] CONSULTATION Name: JOHANNY CURRY Room: [address] IN M.R.#: [id number] Admission: 01/15/19 Attend Phys: Dony Lacey Discharge: Date of : 34 Report #: [id number] REVIEW OF SYSTEMS: She apparently had an episode of confusion in the past, was told she may have had a stroke. She has asthma. No history of peptic ulcer disease, liver disease, chronic skin condition or psychiatric illness. PHYSICAL EXAMINATION: GENERAL: Revealed an elderly frail appearing female, lying in bed. She appeared in no acute distress. VITAL SIGNS: She had a blood pressure of 140/60, pulse is 80. She is afebrile. HEENT: She was anicteric, conjunctivae pink. Mucous members moist. NECK: Neck veins do not appear distended. CHEST: Clear to auscultation. CARDIOVASCULAR: Regular rate and rhythm. ABDOMEN: Soft. EXTREMITIES: Had no edema. SKIN: Cool and dry. NEUROLOGIC: Nonfocal. Her ECG showed a sinus rhythm, septal Q-waves. Her workup in the Emergency Room yesterday, she had multiple x-rays performed including a CT scan of the head without contrast that showed atrophy. Previous lacunar infarction. Chest x-ray showed diffuse interstitial prominence, normal heart size. Carotid Doppler study showed moderate atherosclerosis with 30% stenosis. CT scan of the chest using a PE protocol showed no pulmonary embolus, some atelectasis. Liver cyst. LABORATORY DATA: Sodium 135, creatinine 0.8. Liver function studies were normal. Albumin 4.0. Troponin 0.41. BNP 4496. Cholesterol in 2005 was 132, triglyceride 92. TSH 0.6. Her white blood cell count 13.8, hemoglobin 13.9. IMPRESSION AND RECOMMENDATIONS: 1. Fall, suspect secondary to poor balance and advanced age. Recommend physical therapy. 2. Coronary artery disease. Previous catheterization. No recent angina. 3. Chronic obstructive pulmonary disease. The patient is on bronchodilators. 4. Hypertension. The patient is on an ARB and beta rafita. 5. Hyperlipidemia. The patient is on Zetia. 6. Previous tobacco abuse. 7. History of breast cancer. <ELECTRONICALLY SIGNED> By: Nigel De Anda MD, [facility] 01/17/19 1543 1134 [id number] De Anda MD, FAC /nt
[2019-01-17] MEDS ORDERED: AMBIEN 5 MG TABL5 M1 PO (20:01)
[2019-01-18 04:00] VITALS: BP 176/114
[2019-01-18 05:34] VITALS: BP 137/90
[2019-01-18 05:47] LABS: ABSOLUTE EOSINOPHILS 0.1 thou/uL (0.0-0.7); ABSOLUTE MONOCYTES 0.9 thou/uL (0.0-1.2); ABSOLUTE NEUTROPHILS 7.7 thou/uL (1.6-8.1); BASOPHILS 0.5 %; EOSINOPHILS 0.9 %; HEMATOCRIT 36.8 % (37.0-47.0); LYMPHOCYTES 9.9 %; MCH 32.8 pg (26.0-34.0); MCHC 32.7 g/dL (28.0-37.0); MCV 100.4 fL (80.0-100.0); MONOCYTES 9.5 %; MPV 8.1 fl. (7.2-11.1); NUCLEATED RBCS 0 /100WBC; PLATELET COUNT* 182 thou/uL (150-400); POLYS 79.2 %; RBC 3.67 mil/uL (4.20-5.00); RDW-CV 13.7 % (10.5-14.5); WBC 9.8 thou/uL (4.0-11.0)
[2019-01-18 06:04] LABS: CALCIUM 8.6 mg/dL (8.5-10.1); CREATININE 0.6 mg/dL (0.6-1.3); POTASSIUM 4.1 mmol/L (3.5-5.1)
[2019-01-18 07:15] VITALS: BP 187/79
--- NOTE | 2019-01-18 07:54 | NUR ---
PATIENT IS ALERT AND ORIENTED X4. VSS, O2 SUPPORT WITH NC 2L/M. SLEEPING TABS GIVEN BEFORE BEDTIME. AT 0400, PT DEVELOPED SOA, BREATHING TREATMENT PROVIDED, PHYSICIAN INFORMED, LASIX 20MG ANMINISTERED AND STAT CXR PER ORDERS. IVF NS HOLD. PT STATES EASE OF BREATHING. CALL LIGHT WITHIN REACH.
--- NOTE | 2019-01-18 08:02 | NUR ---
PT ALERT AND ORIENTED TO SELF, TIME AND PLACE BUT CONFUSED. VSS. O2 SUPPORT-NC 2L/M. PT VOIDED DARK URINE 400MLS 0600, URINALYSIS SENT. SLEPT WELL OVERNIGHT.
--- NOTE | 2019-01-18 10:38 | NUR ---
INITAL ASSESSMENT COMPLETED CHARTED. VSS. TRACING SR ON MONITOR. PT DID HAVE AN EPISODE OF SOA, BREATHING TX GIVEN BY RT WITH GOOD RESULTS. PT REMAINS ON 2LPM. HOURLY ROUNDING AND FALL PRECAUTIONS IN PLACE FOR PT SAFETY. CLWR.
[2019-01-18 12:18] VITALS: BP 188/106
--- NOTE | 2019-01-18 15:00 | NUR ---
SPOKE WITH PATIENT AND DTR. POSSIBLE DISCHARGE TOMORROW PER DR. BACK. DISCUSSED HOME HEALTH OPTIONS WITH PT, SHE WANTS TO USE [facility] FOR HOME HEALTH SINCE THAT IS WHO HER GATE ATTENDANT IS FROM. SHE WILL NEED HOME HEALTH NURSING, FOR MEDICATION MONITORING AND POSSIBLE P.T. WILL FOLLOW UP TOMORROW AND SEE HOW PATIENT IS DOING.
[2019-01-18 16:22] VITALS: BP 123/66
[2019-01-18 20:00] VITALS: BP 140/65
[2019-01-19] VITALS (7 sets, daily range): BP systolic 112–191; BP diastolic 58–94
--- NOTE | 2019-01-19 05:14 | NUR ---
ASSUMED CARE OF PT AT 1900 PT ALERT AND ORIENTED X4 VS AND ASSESSMENT STABLE. PT HAD PAIN MEDS ONCE AND THEN AMBIEN BEFORE BED THEN SLEPT THROUGH THE NIGHT. PT NSR ON THE MONITOR. WILL CONTINUE PLAN OF CARE.
--- NOTE | 2019-01-19 09:02 | NUR ---
ASSESSMENT COMPLETED CHARTED. PT C/O CHRONIC BACK PAIN. P/BP ELEVATED, OTHERWISE VSS. TRACING SR ON MONITOR. PT UP WIT GB AND WALKER WITH SBA, STEADY GAIT. HOURLY ROUNDING AND FALL PRECAUTIONS IN PLACE FOR SAFETY. CLWR.
[2019-01-20 00:02] VITALS: BP 133/51
[2019-01-20 04:00] VITALS: BP 145/66
--- NOTE | 2019-01-20 04:47 | NUR ---
REPORT RECEIVED FROM OFF GOIGN SHIFT AND CARE ASSUMMED AT 1900. PT AAOX4 RESP REGA ND UNALBORED SKIN E/D NO ACUTE DISTRESS NOTED. VSS. MONITOR INTACT WITH ALARMS SET. DAMON INTACT AND PATENT DRAINING YELLOW URINE TO BEDSIDE BAG. NO ACUTE CHANGES DURING SHIFT WILL CONTINUE TO MONITOR
[2019-01-20 08:40] VITALS: BP 166/65
--- NOTE | 2019-01-20 08:50 | NUR ---
REC'D REPORT FROM NOC RN, ASSUMED CARE OF PATIENT APPROX 0740, A&OX4. ABLE TO COMMUNICATE NEEDS TO STAFF. ASSESSMENT COMPLETED, VS OBTAINED. ASBESTOS WORKER HELPER IN PLACE, SR. O2W SATS 95% RA. ENCOURAGED TO BE UP IN CHAIR, GOAL SET FOR LUNCH AND DINNER. EDUCATION GIVEN R/T ACTIVITY/REST BALANCE. PATIENT VOICED UNDERSTANDING. CALL LIGHT WITHIN REACH. HOURLY ROUNDING FOR SAFETYA ND PATIENT NEEDS.
[2019-01-20] MEDS ORDERED: PREDNISONE 10 M10 MG PO (10:20)
[2019-01-20] MEDS ORDERED: XARELTO20 MG PO (10:20)
[2019-01-20] MEDS ORDERED: COZAAR 50 MG TA50 M1 PO (10:20)
[2019-01-20] MEDS ORDERED: HYDROXYZINE HCL25 M1 PO (10:20)
[2019-01-20] MEDS ORDERED: OXYCODONE HCL 55 MG PO (10:20)
[2019-01-20] MEDS ORDERED: MELATONIN5 M1 PO (10:20)
[2019-01-20] MEDS ORDERED: ASPIR 8181 MG PO (10:20)
[2019-01-20] MEDS ORDERED: REQUIP 1 MG TABL1 M1 PO (10:20)
[2019-01-20] MEDS ORDERED: KEFLEX500 M1 PO (10:20)
[2019-01-20 10:41] VITALS: BP 166/65
--- NOTE | 2019-01-20 10:45 | NUR ---
Pt discharging to home today. Faxed HH orders to [facility] [phone]. Family will provide dc transportation.
[2019-01-20 12:34] VITALS: BP 164/73
[2019-01-20] MEDS ORDERED: PREDNISONE 5 MG5 M1 PO (13:48)
[2019-01-20] MEDS ORDERED: PERCOCET 10-321 EACH PO (14:09)
[2019-01-20 14:33] LABS: CALCIUM 8.6 mg/dL (8.5-10.1); CREATININE 0.7 mg/dL (0.6-1.3); POTASSIUM 3.7 mmol/L (3.5-5.1)
== END 2019-01-20 16:26 | disposition home health service (06) | DRG 177 ==
LOC: M.ERS 10:52 → M.TBA-ER 12:50 → M.ERS 12:50 → M.2W 12:59 → M.TBA-ER 12:59 → M.2W 14:10
PROVIDERS: Personal Emergency Response Attendant; Registered Nurse; ADMIT Internal Medicine
PROC: 02HV33Z Insertion of Infusion Device into Superior Vena Cava, Percutaneous Approach (ICD-10-PCS; principal; 2019-01-15)
DX: J15.6 Pneumonia due to other Gram-negative bacteria (principal); I50.33 Acute on chronic diastolic (congestive) heart failure; I13.0 Hypertensive heart and chronic kidney disease with heart failure and stage 1 through stage 4 chronic kidney disease, or unspecified chronic kidney disease; J44.0 Chronic obstructive pulmonary disease with (acute) lower respiratory infection; N39.0 Urinary tract infection, site not specified; I82.622 Acute embolism and thrombosis of deep veins of left upper extremity; I82.890 Acute embolism and thrombosis of other specified veins; G93.49 Other encephalopathy; G89.29 Other chronic pain; M54.9 Dorsalgia, unspecified; I25.10 Atherosclerotic heart disease of native coronary artery without angina pectoris; E87.6 Hypokalemia; E78.5 Hyperlipidemia, unspecified; Z96.612 Presence of left artificial shoulder joint; I65.29 Occlusion and stenosis of unspecified carotid artery; Z96.643 Presence of artificial hip joint, bilateral; W19.XXXA Unspecified fall, initial encounter; Z96.651 Presence of right artificial knee joint; N18.3 Chronic kidney disease, stage 3 (moderate); Z90.11 Acquired absence of right breast and nipple; Z88.2 Allergy status to sulfonamides; Z88.8 Allergy status to other drugs, medicaments and biological substances; Z91.040 Latex allergy status; Z88.1 Allergy status to other antibiotic agents; Z88.0 Allergy status to penicillin; Y99.8 Other external cause status; Z88.5 Allergy status to narcotic agent; Z82.49 Family history of ischemic heart disease and other diseases of the circulatory system; Z87.891 Personal history of nicotine dependence; Y93.89 Activity, other specified; Y92.89 Other specified places as the place of occurrence of the external cause

== ENCOUNTER → 2019-11-21 | Outpatient (CLI) | payer MEDICARE, BC ==
[~2019-11-21] MED LIST changes: +COZAAR 50 MG TA50 M1 PO; +KEFLEX500 M1 PO; +MELATONIN5 M1 PO; +OXYCODONE HCL 55 MG PO; +OXYCONTIN20 M1 PO; +XARELTO20 MG PO
== END ==
LOC: M.ULTRA 09-29 14:48
DX: I65.23 Occlusion and stenosis of bilateral carotid arteries (principal); I70.213 Atherosclerosis of native arteries of extremities with intermittent claudication, bilateral legs

== ENCOUNTER → 2020-11-08 | Outpatient (CLI) | payer MEDICARE, BC ==
[2020-11-08 11:03] LABS: ANION GAP 11 mmol/L (7-16); BUN 29 mg/dL (7-18); CALCIUM 9.3 mg/dL (8.5-10.1); CHLORIDE 95 mmol/L (98-107); CHOLESTEROL 133 mg/dL (<200); CO2 25 mmol/L (21-32); CREATININE 1.4 mg/dL (0.6-1.3); GLUCOSE 79 mg/dL (70-99); HDL CHOLESTEROL 50 mg/dL (>40); LDL CHOLESTEROL 42 mg/dL (<100); SODIUM 131 mmol/L (136-145); TC:HDL 2.7 Ratio (Not establshd); TRIGLYCERIDE 205 mg/dL (<150); VLDL 41 mg/dL (<40)
[2020-11-08 11:05] LABS: SERUM ASSESSMENT Clear
== END ==
LOC: M.LAB 10:25
PROVIDERS: ATTEND Nurse Practitioner
DX: E78.2 Mixed hyperlipidemia (principal); I10 Essential (primary) hypertension; I50.32 Chronic diastolic (congestive) heart failure

== ENCOUNTER 2021-01-27 01:57 | Emergency (ER) | payer MEDICARE, BC ==
[~2021-01-27] VITALS: Ht 157.5 cm; Wt 57.6 kg
[2021-01-27 03:14] VITALS: BP 100/62
== END 2021-01-27 03:15 | disposition home or self-care (01) ==
LOC: M.ERS 01:57
DX: S81.812A Laceration without foreign body, left lower leg, initial encounter (principal); I13.0 Hypertensive heart and chronic kidney disease with heart failure and stage 1 through stage 4 chronic kidney disease, or unspecified chronic kidney disease; N18.30 Chronic kidney disease, stage 3 unspecified; I50.30 Unspecified diastolic (congestive) heart failure; J44.9 Chronic obstructive pulmonary disease, unspecified; Z96.643 Presence of artificial hip joint, bilateral; Z96.612 Presence of left artificial shoulder joint; Z96.651 Presence of right artificial knee joint; Z90.49 Acquired absence of other specified parts of digestive tract; Z90.89 Acquired absence of other organs; Z98.890 Other specified postprocedural states; Z79.899 Other long term (current) drug therapy; Z79.82 Long term (current) use of aspirin; Z91.040 Latex allergy status; Z88.1 Allergy status to other antibiotic agents; Z88.0 Allergy status to penicillin; Z88.8 Allergy status to other drugs, medicaments and biological substances; Z88.2 Allergy status to sulfonamides; Z87.891 Personal history of nicotine dependence; W06.XXXA Fall from bed, initial encounter; Y93.89 Activity, other specified; Y92.89 Other specified places as the place of occurrence of the external cause; Y99.8 Other external cause status

== ENCOUNTER → 2021-02-12 | Outpatient (CLI) | payer MEDICARE, BC ==
[2021-02-12 11:44] LABS: CALCIUM 9.3 mg/dL (8.5-10.1); CREATININE 0.7 mg/dL (0.6-1.3); POTASSIUM 4.6 mmol/L (3.5-5.1)
== END ==
LOC: M.LAB 11:09
PROVIDERS: ATTEND Internal Medicine Cardiovascular Disease
DX: I50.32 Chronic diastolic (congestive) heart failure (principal)